=== PATIENT | female | born 1985 | race Caucasian/White ===

== ENCOUNTER 2020-09-13 20:54 | Emergency (ER) | payer OTHER, MEDICAID ==
[~2020-09-13 20:54] MED LIST: COLACE100 MG PO; NAPROSYN EC 50500 MG GT; PERCOCET 5/325 T1 EA PO
[2020-09-13] MEDS ORDERED: LODINE CAP 300300 MG PO (22:22)
== END 2020-09-13 22:47 | disposition home or self-care (01) ==
LOC: ER1 20:54
DX: S30.0XXA Contusion of lower back and pelvis, initial encounter (principal); S70.01XA Contusion of right hip, initial encounter; S50.01XA Contusion of right elbow, initial encounter; W01.0XXA Fall on same level from slipping, tripping and stumbling without subsequent striking against object, initial encounter
CPT/HCPCS: 72128; 72131; 73080; 73502; 99284